=== PATIENT | male | born 1975 | race Caucasian/White ===

== ENCOUNTER 2024-10-12 08:42 | Outpatient (AMB) | payer MEDICAID, SELFPAY ==
--- NOTE | 2024-10-12 08:48 | A.OFFVIS_ITS ---
Vital Signs 10/12/24 09:04 Height 6 ft 2 in Weight 216 lb BMI 27.7 BP 146/91 H Blood Pressure Location Rt brachial Position Sitting Pulse 76 Intake Visit Reasons: Right inguinal hernia Intake Note: Patient referred after walk in Urgent Care visit for RT inguinal hernia. Present for 1yr. Patient c/o: pain. 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 Client Liaison Required: Yes Client Liaison Name: Shahana spouse Accompanied by: Spouse Allergies No Known Allergies Allergy (Verified 10/12/24 09:06) HPI Comments Details: Patient presents with his . He has had a symptomatic right inguinal hernia for over 1 year's time. He had a CT scan of this at [facility] roughly 12 months ago which confirmed the hernia. The patient has had progressive symptoms and now would like to have it repaired. He is otherwise tolerating a diet. He is having regular bowel habits. The pneumatic hernia has limited his activities. Chart was reviewed and patient evaluated. 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 [facility] Family History (Updated 10/12/24 @ 09:08 by LUAN Lomas) Father HTN (hypertension) Diabetes Social History (Updated 10/12/24 @ 09:09 by LUAN Lomas) Household Members: Spouse and Children Alcohol intake: current Alcohol intake frequency: holidays/special occasions only Alcohol type: hard liquor Patient Tobacco Use Status: Never used Tobacco Sexual orientation: Straight/Heterosexual Gender identity: Male Physical Exam Vital Signs: Last Vital Signs Pulse 76 10/12/24 09:04 BP 146/91 H 10/12/24 09:04 BMI result Body Mass Index 27.7 Chest Other: Chest breath sounds bilaterally, HS 1 in 2 GI Other: Patient was examined both supine and standing with Valsalva. Abdomen is soft, benign. Left groin negative. Genitalia within normal limits. Small tender right inguinal hernia. Assessment & Plan Assessment & Plan (1) Right inguinal hernia: Code(s): K40.90 - Unilateral inguinal hernia, without obstruction or gangrene, not specified as recurrent Category: Surgical Plan Risks, benefits, and alternatives of open right inguinal hernia repair with mesh were reviewed with the patient included but not limited to bleeding, infection, recurrence, numbness, pain, scarring and the patient wished to proceed. All questions answered. Arrangements made for this on a day which is convenient. Coding Level of Care Code New Pt Level 5 (19479) Diagnoses Right inguinal hernia K40.90
[2024-10-12 09:04] VITALS: BP 146/91; PULSE 76; BMI 27.7
== END 2024-10-12 09:20 | disposition home or self-care (01) ==
PROVIDERS: Visit Provider Surgery
DX: K40.90 Unilateral inguinal hernia, without obstruction or gangrene, not specified as recurrent (principal)
CPT/HCPCS: 99204

== ENCOUNTER → 2024-10-12 08:42 | Outpatient (BNVA) | payer MEDICAID, SELFPAY | PROVIDERS: Visit Provider Surgery | DX: K40.90 Unilateral inguinal hernia, without obstruction or gangrene, not specified as recurrent (principal) | CPT/HCPCS: 99202 ==

== ENCOUNTER 2024-11-05 12:45 | Outpatient (AMB) | payer MEDICAID, SELFPAY ==
--- NOTE | 2024-11-05 12:54 | A.OFFPC_ITS ---
Vital Signs 11/05/24 12:56 Height 6 ft 1.43 in Weight 216 lb 2 oz BMI 28.2 BP 120/70 Blood Pressure Location Lt brachial Position Sitting Pulse 83 Pulse Source Pulse Oximeter Temp 97.5 F Temp Source Temporal Artery Scan Pulse Oximetry (%) 97 Oxygen Delivery Method Room Air Intake Visit Reasons: new patient Intake Note: Patient is a new patient here to establish care for Wellness visit. Transferring care from Unknown. Medical records have not been requested and have not received. Strategy Execution Consultant Required: Yes Strategy Execution Consultant Language: Nauruan Strategy Execution Consultant Name: Ramsey (sister) Information Interpreted: non-clinical & clinical (pt decline production control planner service, prefer sister to translate) Medical Transcription: Present Accompanied by: Sister Allergies No Known Allergies Allergy (Verified 11/05/24 13:02) Medication List - Last Reconciled 11/05/24 by LEXUS Jason No Known Home Meds Tobacco use date assessed: 11/05/24 Dental Screening Dental Screen Date: 11/05/24 Did you have a dental visit in the last 12 months?: Yes Did you have a dental problem in the last 6 months where you did not have access to dental care?: No Was dental information given to patient?: Patient has dentist HPI new patient HPI Details Previous PCP:no Last visit: Last PE[place] Specialist: general surgery OBGYN: n/a Past medical history: no Medications:no Family HX: mother osteoarthritis and osteoporosis, migraines and asthma, hip surgery, father DM when he was 50 years old because of the weight Problem: The patient is 49 year old year old male presenting to establish care Patient is accompanied by sister who interpreted for the patient per his request The patient reports that he is a healthy jae that has no issues The patient reports that 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 As a result, the patient developed a right inguinal hernia about a year ago Reports that he was seen by General surgery and has plans for surgical repair The patient also reports lower back pain that radiates down his legs to behind posterior knee on both sides He reports that the severely of the pain is depending on what he is doing Patient reports that the pain in his right groin is more severe reports that he has limited ROM motion in the right leg due the pain He reports that sometimes he has mild shortness of breath when he is exerting himself Patient reports that he does not see an issue and thinks that it is age-related Patient reports that his main focus is to get his groin taking care off and to also get a general workup He denies dizziness, denies heart palpitation, and chest pain reports that he is moving his bowel ok reports seldom getting heartburn if he eats tomatoes He denies any urinary symptoms PFSH Surgical History (Updated 11/07/24 @ 11:51 by LEXUS Jason) No pertinent past surgical history Family History (Updated 11/07/24 @ 11:51 by LEXUS Jason) Father HTN (hypertension) Diabetes Mother History of hip surgery Migraines Osteoarthritis Osteoporosis Social History (Updated 11/05/24 @ 13:05 by LUAN Peoples) Household Members: Spouse and Children Housing: House Alcohol intake: current Alcohol intake frequency: holidays/special occasions only Alcohol type: hard liquor Patient Tobacco Use Status: Never used Tobacco e-Cigarette/Vaping Use: Never Used Second Hand Smoke Exposure: No service: No Current occupational status: unemployed Sexual orientation: Straight/Heterosexual Gender identity: Male Cognitive needs: No Hearing needs: No Vision needs: No Questionnaire PHQ-9 Over the last 2 weeks, how often have you been bothered by any of the following problems? 1. Little interest or pleasure in doing things: not at all 2. Feeling down, depressed, or hopeless: not at all 3. Trouble falling or staying asleep, or sleeping too much: not at all 4. Feeling tired or having little energy: not at all 5. Poor appetite or overeating: not at all 6. Feeling bad about yourself - or that you are a failure or have let yourself or your family down: not at all 7. Trouble concentrating on things, such as reading the newspaper or watching television: not at all 8. Moving or speaking so slowly that other people could have noticed. Or the opposite - being so fidgety or restless that you have been moving around a lot more than usual: not at all 9. Thoughts that you would be better off or of hurting yourself in some way: not at all Total score: 0 Depression Screening Interpretation: Negative Depression Screening Done: Yes 45905 - PHQ-9 Billing: Yes Source: Developed by Drs. Romain Perdomo, Annika Arauz, Shine Martinez and colleagues, with an educational rajesh from [employer]. Thrive Questionnaire Date Thrive assessed: 11/04/24 I am a: Patient What is your living situation today?: I have a steady place to live Within the past 12 months, did the food you bought not last and you didn't have the money to get more?: Never true Within the past 12 months, did you worry whether your food would run out before you got money to buy more?: I choose not to answer this question Do you have trouble paying for medicines?: No Do you have trouble getting transportation to medical appointments?: No Do you have trouble paying your heating and electricity bill?: No Do you have trouble taking care of your child, family member or friend?: No Do you have trouble with day-to-day activities such as bathing, preparing meals, shopping, managing finances, etc.?: No Are you currently unemployed and looking for a job?: Yes Are you interested in more education?: No Please select the resources that you would like help with: None Currently or been in a relationship where the following occur: No concerns reported THRIVE Score: 0 AUDIT C Alcohol Use Questionnaire (AUDIT-C) 1. How often do you have a drink containing alcohol?: Never 3. How often do you have six or more drinks on one occasion?: Never Total Score: 0 ZACH-7 AMB Questionnaire ZACH-7 Date ZACH - 7 assessed: 11/05/24 Feeling nervous, anxious, or on edge: 0 = Not at all Not being able to stop or control worryin = Not at all Worrying too much about different things: 0 = Not at all Trouble relaxin = Not at all Being so restless that it is hard to sit still: 0 = Not at all Becoming easily annoyed or irritable: 0 = Not at all Feeling afraid as if something awful might happen: 0 = Not at all Total ZACH-7 score (0-4 normal; 5-9 mild; 10-14 moderate; 15-21 severe): 0 Source: Developed by Annika Billings, Shine Martinez and colleagues, with an educational rajesh from [employer]. ZACH-7 Assessment Billing ZACH-7 Assessment Tool: ZACH-7 Assessment 46237 Review of Systems Const Details: Denies chills, Denies fatigue, Denies fever(s), Denies headache(s) and Denies weakness HEENT Denies change in vision, Denies dizziness, Denies headache(s), Denies hearing loss, Denies nasal congestion, Denies sinus pain, Denies sinus pressure and Denies sore throat Card Denies chest pain, Denies lightheadedness, + mild dyspnea with exertion and Denies other (palpitations) Resp Denies cough, + mild dyspnea with exertion and Denies wheezing GI Denies abdominal pain, Denies melena, Denies hematochezia, Denies change in bowel habits, Denies dyspepsia and Denies nausea other: right groin pain (inguinal hernia) Denies hematuria and Denies dysuria Musc Denies abnormal gait, Denies myalgias, +arthralgias (c/o on and off lower back that radiates to the back of his leg slightly above his knees), Denies numbness and Denies tingling Skin/Breast Denies rash, Denies unusual bruising and Denies wounds Neuro Denies abnormal gait, Denies dizziness, Denies headache(s), Denies memory loss, Denies numbness, Denies Sensory deficit (Neuro), Denies tingling and Denies weakness Psych Denies anxiety, Denies depression and Denies memory loss Endo Denies cold intolerance, Denies fatigue, Denies heat intolerance, Denies polydipsia and Denies polyuria Jack/Lymph Denies easy bleeding and Denies easy bruising Aller/Immun Denies wheezing Physical exam (Primary Care) Vital Signs: Last Vital Signs Temp 97.5 F 11/05/24 12:56 Pulse 83 11/05/24 12:56 BP 120/70 11/05/24 12:56 Pulse Ox 97 11/05/24 12:56 Oxygen Delivery Method Room Air 11/05/24 12:56 BMI result Body Mass Index 28.2 Tobacco/Smoking Status: Tobacco use Status Tobacco use date assessed 11/05/24 11/05/24 13:05 Patient Tobacco Use Status Never used Tobacco 11/05/24 13:05 e-Cigarette/Vaping Use Never Used 11/05/24 13:05 PHQ-9: PHQ-9 Score PHQ-9: Total score 0 11/05/24 13:05 Depression Screening Interpretation: Negative Thrive Assessment: Date of Thrive Assessment Date Thrive assessed 11/04/24 11/05/24 13:05 Currently or been in a relationship where the following occur: No concerns reported Const Other: General: no acute distress, well developed, alert and awake Nutritional Appearance: well nourished Orientation/consciousness: patient oriented x3 HENMT Head: Yes normocephalic and Yes atraumatic Ears: hearing grossly normal bilaterally and TM's normal bilaterally General nose exam: Normal external nose present and Normal nares present Mouth: Normal oral and palatal mucosa present and moist mucous membranes Teeth and gingiva: dentition normal Throat: Yes oropharynx normal Eyes Pupils: Equal, round and reactive pupils present and Pupil accommodation reflex normal EOM: EOMs intact bilaterally Neck Neck: Yes normal visual inspection, Yes no lymphadenopathy and Yes trachea midline Thyroid: Thyroid normal Carotids: no bruits Lymphatic: no lymphadenopathy noted Chest Chest palpation & inspection: normal inspection of the chest Resp Effort & Inspection: normal respiratory effort Auscultation: clear to auscultation bilaterally Cardio Rate: regular rate Rhythm: regular rhythm Heart sounds: S1 normal heart sound present, S2 normal heart sound present, no gallops, no murmurs and no rubs Bruits: no abdominal aortic bruits and no carotid bruits GI Palpation (GI): No Abdominal aortic bruit present, Soft to palpation, nontender, No hepatosplenomegaly present and No Rebound tenderness present Auscultation: normal bowel sounds General: Yes no CVA tenderness Back/Spine/Pelvis Back: no CVA tenderness Cervical Spine: cervical ROM normal and No Cervical spine tenderness Thoracic/Lumbar Spine: No lumbar tenderness with palpation Skin General: warm and dry. Normal skin color. Normal skin turgor Lesions: no lesions Wounds: no wounds Nails: normal Neuro General: patient oriented x3, gait normal Cranial nerves: Yes Equal, round and reactive pupils present Cognition (Neuro): normal cognition Gait exam (Neuro): Normal gait present Extrem General: Yes normal to inspection, No edema and No calf tenderness Psych Appearance: grossly normal Affect: normal affect Attitude: cooperative Thought process: Normal thought process present Coding Level of Care Code New Pt Level 4 (14232) Diagnoses Encounter to establish care with new provider Z76.89 Right inguinal hernia K40.90 Bilateral low back pain with bilateral sciatica, unspecified chronicity M54.42; M54.41 Chronicity: unspecified Back pain laterality: bilateral Sciatica presence: with sciatica Sciatica laterality: bilateral sciatica Additional Codes ZACH-7 Assessment Billing - ZACH-7 Assessment Tool: ZACH-7 Assessment 01295 ([id number]) PHQ-9 - 35143 - PHQ-9 Billing: Yes ([id number]) Time Spent (min) 36 Assessment & Plan Assessment & Plan (1) Encounter to establish care with new provider: Code(s): Z76.89 - Persons encountering health services in other specified circumstances Category: Medical Plan: Labs ordered for the patient to do as soon as possible. Patient to return in 2 weeks for physical exam. An EKG was ordered as well to evaluate the patient for upcoming pre-procedure clearance (2) Right inguinal hernia: Code(s): K40.90 - Unilateral inguinal hernia, without obstruction or gangrene, not specified as recurrent Category: Surgical Plan: Right groin hernia present on exam. Denies pain with palpation. Reports that the pain comes when he is doing heavy lifting, which is required by his job. Reports he is not taking any medication at this time and is just resting intermittently with positive effect. The patient was examined by General surgery and was told that he needed a PCP in order to go ahead with surgery. The patient is establishing care to get a generalized workup and also to be cleared for surgery. (3) Lower back pain: Code(s): M54.50 - Low back pain, unspecified Category: Medical Qualifiers: Chronicity: unspecified Back pain laterality: bilateral Sciatica presence: with sciatica Sciatica laterality: bilateral sciatica Qualified Code(s): M54.42 - Lumbago with sciatica, left side; M54.41 - Lumbago with sciatica, right side Plan: Patient reports that this is less bothersome and he is more concerned about his right groin at this time. We will continue to monitor Orders: Orders Comprehensive [place]. Panel Fast 11/06/24 K40.90 - Unilateral inguinal hernia, without obstruction or gangrene, not specified as recurrent, Z00.00 - Encounter for general adult medical examination without abnormal findings Glucose Fasting 11/06/24 K40.90 - Unilateral inguinal hernia, without obstruction or gangrene, not specified as recurrent, Z00.00 - Encounter for general adult medical examination without abnormal findings UA CC w/rflx Micro + Cult 11/06/24 K40.90 - Unilateral inguinal hernia, without obstruction or gangrene, not specified as recurrent, Z00.00 - Encounter for general adult medical examination without abnormal findings Vitamin D 25-OH Total 11/06/24 K40.90 - Unilateral inguinal hernia, without obstruction or gangrene, not specified as recurrent, Z00.00 - Encounter for general adult medical examination without abnormal findings Complete Blood Count Auto Diff 11/06/24 K40.90 - Unilateral inguinal hernia, without obstruction or gangrene, not specified as recurrent, Z00.00 - Encounter for general adult medical examination without abnormal findings Lipid Panel 11/06/24 K40.90 - Unilateral inguinal hernia, without obstruction or gangrene, not specified as recurrent, Z00.00 - Encounter for general adult medical examination without abnormal findings Hemoglobin A1c 11/06/24 K40.90 - Unilateral inguinal hernia, without obstruction or gangrene, not specified as recurrent, Z00.00 - Encounter for general adult medical examination without abnormal findings TSH reflex Free T4 11/06/24 K40.90 - Unilateral inguinal hernia, without obstruction or gangrene, not specified as recurrent, Z00.00 - Encounter for general adult medical examination without abnormal findings ECG 12 lead EKG 11/05/24 K40.90 - Unilateral inguinal hernia, without obstruction or gangrene, not specified as recurrent, Z00.00 - Encounter for general adult medical examination without abnormal findings, Z01.818 - Encounter for other preprocedural examination
[2024-11-05 12:56] VITALS: BP 120/70; PULSE 83; TEMP 36.4; O2SAT 97; BMI 28.2
== END 2024-11-05 13:42 | disposition home or self-care (01) ==
DX: Z76.89 Persons encountering health services in other specified circumstances (principal); K40.90 Unilateral inguinal hernia, without obstruction or gangrene, not specified as recurrent; M54.42 Lumbago with sciatica, left side; M54.41 Lumbago with sciatica, right side

== ENCOUNTER → 2024-11-05 12:45 | Outpatient (BNVA) | payer MEDICAID, SELFPAY | DX: M54.42 Lumbago with sciatica, left side (principal); M54.41 Lumbago with sciatica, right side; K40.90 Unilateral inguinal hernia, without obstruction or gangrene, not specified as recurrent; Z76.89 Persons encountering health services in other specified circumstances | CPT/HCPCS: 96127; 99202 ==

== ENCOUNTER 2024-11-06 07:28 | Outpatient (REF) | payer MEDICAID, SELFPAY ==
[2024-11-06 07:54] LABS: MANUAL DIFF FLAG NO
[2024-11-06 09:10] LABS: Basophils Percent Auto 0.8 % (0-2); Eosinophils Absolute Auto 0.2 X10*3/uL (0.0-0.4); Eosinophils Percent Auto 3.1 % (0-4); Hematocrit 44.9 % (42.0-52.0); Hemoglobin 15.1 g/dl (14.0-18.0); Imm Gran Abs Auto 0.05 X10*3/uL (0.00-0.03); Lymphocytes Percent Auto 38.6 % (20-40); Mean Corpuscular HGB Conc 33.6 g/dl (31.0-36.0); Mean Corpuscular Hemoglobin 29.2 pg (27.0-33.0); Mean Corpuscular Volume 86.7 fL (80.0-98.0); Mean Platelet Volume 10.9 fL (9.4-12.4); Monocytes Absolute Auto 0.6 X10*3/uL (0.1-1.2); Neutrophils Absolute Auto 2.3 x10*3/uL (2.0-8.3); Neutrophils Percent Auto 45.5 % (45-73); Platelet Count 208 X10*3/uL (160-400); Red Blood Count 5.18 X10*6/uL (4.60-5.80); White Blood Count 5.1 X10*3/uL (4.8-10.8)
[2024-11-06 09:21] LABS: Estimated Average Glucose 103 mg/dL; Hemoglobin A1C 131.1631 umol/L; Hemoglobin A1c % 5.2 % (<6.0); Total Hemoglobin (HGBA1C) 3892.5236 umol/L
[2024-11-06 09:23] LABS: Appearance Urine Clear; Color Urine Yellow; Glucose Urine UA Negative (Negative); Leukocyte Esterase Urine Negative (Negative); Nitrite Urine Negative (Negative); PH 5.5 (5.0-9.0); Specific Gravity - Urine >= 1.030 (1.005-1.025); Urine Blood Negative (Negative); Urine Ketones Negative (Negative); Urine Protein Trace mg/dL (Neg-Trace)
[2024-11-06 10:08] LABS: Alanine Aminotransferase 33 U/L (0-40); Albumin Level 4.3 g/dL (3.5-5.0); Alkaline Phosphatase 69 U/L (39-117); Anion Gap 13 (12-20); Aspartate Amino Transferase 19 U/L (5-37); Bilirubin Total 0.6 mg/dL (0.0-1.0); Blood Urea Nitrogen 22 mg/dL (9-16); Calcium 9.2 mg/dL (8.4-10.2); Carbon Dioxide 24 mmol/L (22-29); Chloride 110 mmol/L (96-108); Cholesterol 216 mg/dL (<200); Estimated Glomerular Filt Rate > 60; Glucose Fasting 112 mg/dL (60-99); HDL Cholesterol 40 mg/dL (>40); LDL Cholesterol Calculated 141 mg/dL (<100); Potassium 3.8 mmol/L (3.3-5.1); Sodium 143 mmol/L (135-145); Total Protein 7.8 g/dL (6.5-8.0); Triglycerides 179 mg/dL (<150)
== END 2024-11-06 07:29 | disposition home or self-care (01) ==
LOC: HO.LAB 07:28
DX: Z00.00 Encounter for general adult medical examination without abnormal findings (principal); K40.90 Unilateral inguinal hernia, without obstruction or gangrene, not specified as recurrent
CPT/HCPCS: 36415; 80053; 80061; 81003; 82306; 83036; 84443; 85025

== ENCOUNTER → 2024-11-08 07:59 | Outpatient (REF) | payer MEDICAID, SELFPAY ==
--- NOTE | 2024-11-08 08:08 | ECG_ITS ---
Test Reason : preop k40.90 Blood Pressure : */* mmHG Vent. Rate : 61 BPM Atrial Rate : 61 BPM P-R Int : 158 ms QRS Dur : 118 ms QT Int : 426 ms P-R-T Axes : 58 27 16 degrees QTcB Int : 428 ms Normal sinus rhythm Incomplete right bundle branch block Borderline ECG No previous ECGs available Referred By: Arun Alonso Electronically Signed By: JEREMÍAS BOUCHER
== END ==
LOC: HO.CARD 07:59
DX: Z01.818 Encounter for other preprocedural examination (principal); K40.90 Unilateral inguinal hernia, without obstruction or gangrene, not specified as recurrent
CPT/HCPCS: 93005

== ENCOUNTER → 2024-11-08 08:08 | Outpatient (BNV) | payer MEDICAID, SELFPAY | PROVIDERS: Visit Provider Internal Medicine | DX: I45.10 Unspecified right bundle-branch block (principal) | CPT/HCPCS: 93010 ==

== ENCOUNTER 2024-11-23 14:39 | Outpatient (AMB) | payer OTHER, SELFPAY ==
--- NOTE | 2024-11-23 14:45 | A.OFFPC_ITS ---
Vital Signs 11/23/24 14:46 Height 6 ft 1.43 in Weight 216 lb 9.6 oz BMI 28.2 BP 122/86 Blood Pressure Location Lt brachial Position Sitting Respiration 16 Pulse 96 Pulse Source Pulse Oximeter Temp Source Oral Pulse Oximetry (%) 96 Oxygen Delivery Method Room Air Intake Visit Reasons: Annual physical Batch Attendant Required: No Accompanied by: Sister Allergies No Known Allergies Allergy (Verified 11/23/24 14:55) Medication List - Last Reconciled 11/23/24 by LEXUS Jason No Known Home Meds Tobacco use date assessed: 11/23/24 Dental Screening Dental Screen Date: 11/23/24 Did you have a dental visit in the last 12 months?: Yes Did you have a dental problem in the last 6 months where you did not have access to dental care?: No Was dental information given to patient?: Patient has dentist HPI Annual physical HPI Details Dentist: up to date Eye: Snellen: Right: Left: Corrected vision: no, will make appt STI screening: Colonoscopy: next year Pap Smer:n/a PHQ-9: Flu: decline COVID: decline Tdap: will get in office today Diet: regular Exercise: swim would like some titers done PFSH Surgical History No pertinent past surgical history Family History Father HTN (hypertension) Diabetes Mother History of hip surgery Migraines Osteoarthritis Osteoporosis Social History Household Members: Spouse and Children Housing: House Alcohol intake: current Alcohol intake frequency: holidays/special occasions only Alcohol type: hard liquor Patient Tobacco Use Status: Never used Tobacco e-Cigarette/Vaping Use: Never Used Second Hand Smoke Exposure: No service: No Current occupational status: unemployed Sexual orientation: Straight/Heterosexual Gender identity: Male Cognitive needs: No Hearing needs: No Vision needs: No Questionnaire Thrive Questionnaire Date Thrive assessed: 11/23/24 I am a: Patient What is your living situation today?: I have a steady place to live Within the past 12 months, did the food you bought not last and you didn't have the money to get more?: Never true Within the past 12 months, did you worry whether your food would run out before you got money to buy more?: I choose not to answer this question Do you have trouble paying for medicines?: No Do you have trouble getting transportation to medical appointments?: No Do you have trouble paying your heating and electricity bill?: No Do you have trouble taking care of your child, family member or friend?: No Do you have trouble with day-to-day activities such as bathing, preparing meals, shopping, managing finances, etc.?: No Are you currently unemployed and looking for a job?: Yes Are you interested in more education?: No Please select the resources that you would like help with: None Currently or been in a relationship where the following occur: No concerns reported THRIVE Score: 0 AUDIT C Alcohol Use Questionnaire (AUDIT-C) 1. How often do you have a drink containing alcohol?: Never 3. How often do you have six or more drinks on one occasion?: Never Total Score: 0 ZACH-7 AMB Questionnaire ZACH-7 Date ZACH - 7 assessed: 11/05/24 Source: Developed by Drs. Romain Perdomo, Annika Arauz, Shine Martinez and colleagues, with an educational rajesh from [employer]. Physical exam (Primary Care) Vital Signs: Last Vital Signs Pulse 96 11/23/24 14:46 Resp 16 11/23/24 14:46 BP 122/86 11/23/24 14:46 Pulse Ox 96 11/23/24 14:46 Oxygen Delivery Method Room Air 11/23/24 14:46 BMI result Body Mass Index 28.2 Tobacco/Smoking Status: Tobacco use Status Tobacco use date assessed 11/23/24 11/23/24 14:54 Patient Tobacco Use Status Never used Tobacco 11/23/24 14:54 e-Cigarette/Vaping Use Never Used 11/23/24 14:54 Thrive Assessment: Date of Thrive Assessment Date Thrive assessed 11/23/24 11/23/24 14:54 Currently or been in a relationship where the following occur: No concerns reported Immunizations Boostrix Tdap 2.5 Lf unit-8 mcg-5 Lf/0.5 mL intramuscular syringe Performing Provider: LEXUS Jason [facility] Administered by: Roopa Hinojosa CMA on 11/23/24 15:31 Dose Route Admin Location Dispensed Lot Number Expiration Date NDC Street Light Rep[employer]r Helper 0.5 mL IM Left Deltoid 0.5 mL [id number] 01/01/27 [id number] [employer] VIS Given Date VIS Provided VIS Publication Date 11/23/24 Single Vaccine 21 Eligibility Eligibility Date Funding Source Not VFC Eligible 11/23/24 Private Coding Assessment & Plan Assessment & Plan Orders: Orders Comprehensive [place]. Panel Fast 3 Months E56.9 - Vitamin deficiency, unspecified, E78.00 - Pure hypercholesterolemia, unspecified, I45.10 - U nspecified right bundle-branch block Lipid Panel 3 Months E56.9 - Vitamin deficiency, unspecified, E78.00 - Pure hypercholesterolemia, unspecified, I45.10 - Unspecified right bundle-branch block TSH reflex Free T4 3 Months E56.9 - Vitamin deficiency, unspecified, E78.00 - Pure hypercholesterolemia, unspecified, I45.10 - Unspecified right bundle-branch block TDaP Immunization Today Z23 - Encounter for immunization UA CC w/rflx Micro + Cult 3 Months E56.9 - Vitamin deficiency, unspecified, E78.00 - Pure hypercholesterolemia, unspecified, I45.10 - Unspecified right bundle-branch block Vitamin D 25-OH Total 3 Months E56.9 - Vitamin deficiency, unspecified, E78.00 - Pure hypercholesterolemia, unspecified, I45.10 - Unspecified right bundle- branch block Medications: New atorvastatin 10 mg PO BEDTIME 3 months 90 tabs 3RF E78.00 - Pure hypercholesterolemia, unspecified cholecalciferol (vitamin D3) 25 mcg PO DAILY 3 months 90 caps 3RF E56.9 - Vitamin deficiency, unspecified
[2024-11-23 14:46] VITALS: BP 122/86; PULSE 96; RESP 16; O2SAT 96; BMI 28.2
== END 2024-11-23 15:52 | disposition home or self-care (01) ==
LOC: HO.HMCH 14:40
DX: Z23 Encounter for immunization (principal)

== ENCOUNTER → 2024-11-23 14:39 | Outpatient (BNVA) | payer OTHER, SELFPAY | DX: Z00.00 Encounter for general adult medical examination without abnormal findings (principal); Z23 Encounter for immunization; I45.10 Unspecified right bundle-branch block; M54.41 Lumbago with sciatica, right side; M54.42 Lumbago with sciatica, left side; K40.90 Unilateral inguinal hernia, without obstruction or gangrene, not specified as recurrent; E55.9 Vitamin D deficiency, unspecified; E78.2 Mixed hyperlipidemia | CPT/HCPCS: 90471; 90715; 99396 ==

== ENCOUNTER 2024-11-30 13:13 | Outpatient (AMB) | payer OTHER, SELFPAY ==
[2024-11-30 13:25] VITALS: BP 130/80; PULSE 74; BMI 28.3
--- NOTE | 2024-11-30 13:25 | MHC.OFFVIS ---
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 He is a healthy 49-year-old male who has developed symptomatic right inguinal hernia which limits his activity level. Patient says because of that he has not been able to exercise regularly. He has been. However prior to that he has been in great functional shape. He suddenly when he burst running he gets short of breath and rapid heart rate. He does not get symptoms of shortness of breath with minimal day-to-day activity. He definitely has more than 4 Mets of physical capacity. He is scheduled to undergo right inguinal hernia repair which is considered low risk surgery. Patient was noted recently to hyperlipidemia with elevated triglycerides as well as elevated LDL and was started on atorvastatin 10 mg daily. Patient has no family history of premature coronary artery disease. His mother did recently have atrial fibrillation was cardioverted as per him. He denies any orthopnea, PND, leg edema. No lightheadedness, syncope. [facility] Surgical History No pertinent past surgical history Family History Father HTN (hypertension) Diabetes Mother History of hip surgery Migraines Osteoarthritis Osteoporosis Social History Household Members: Spouse and Children Housing: House Alcohol intake: current Alcohol intake frequency: holidays/special occasions only Alcohol type: hard liquor Patient Tobacco Use Status: Never used Tobacco e-Cigarette/Vaping Use: Never Used Second Hand Smoke Exposure: No service: No Current occupational status: unemployed Sexual orientation: Straight/Heterosexual Gender identity: Male Cognitive needs: No Hearing needs: No Vision needs: No Review of Systems Const Denies chills, Denies daytime sleepiness, Denies fatigue, Denies fever(s), Denies frequent falls, Denies poor appetite, Denies snoring, Denies stops breathing during sleep, Denies weakness, Denies weight gain and Denies weight loss Eyes Denies loss of vision ENT Denies dizziness and Denies hearing loss Card Denies chest pain, Denies claudication, Denies leg edema, Denies lightheadedness, Denies palpitations, Denies dyspnea, Denies dyspnea on exertion and Denies orthopnea Resp Denies cough, Denies excessive phlegm production, Denies dyspnea, Denies dyspnea on exertion, Denies snoring and Denies wheezing GI Denies abdominal pain, Denies hematochezia, Denies change in bowel habits, Denies nausea and Denies vomiting Denies dysuria and Denies urinary frequency Musc Denies arthralgias, Denies muscle weakness, Denies numbness and Denies other (frequent falls) Skin/Breast Denies nail changes and Denies rash Neuro Denies Abnormal speech present, Denies dizziness, Denies frequent falls, Denies loss of vision, Denies memory loss, Denies numbness and Denies weakness Psych Denies depression and Denies memory loss Endo Denies fatigue and Denies palpitations Jack/Lymph Reports easy bruising and Reports other (anemia) Aller/Immun Denies wheezing Physical Exam Vital Signs: Last Vital Signs Pulse 74 11/30/24 13:25 BP 130/80 11/30/24 13:25 BMI result Body Mass Index 28.3 Const General: cooperative, comfortable, no acute distress, well developed, awake and Physically active Nutritional Appearance: average body habitus and well nourished Orientation/consciousness: patient oriented x3 Limitations: no limitations HEENT Head: Yes normocephalic and Yes atraumatic Neck Neck: Yes trachea midline, Yes supple and Yes no JVD Carotids: no bruits Resp Effort & Inspection: normal respiratory effort Auscultation: clear to auscultation bilaterally Cardio Jugular venous distension: no JVD Palpation: normal PMI Rate: regular rate Rhythm: regular rhythm Heart sounds: S1 normal heart sound present, S2 normal heart sound present, no click, no gallops, no murmurs and no rubs Peripheral pulses: Peripheral pulses 2+ throughout GI Auscultation: normal bowel sounds Skin General skin exam: no rashes or lesions noted Neuro General: patient oriented x3 and no focal motor deficits Speech: No Abnormal speech present Extrem General: Yes no clubbing, cyanosis or edema Psych Appearance: grossly normal Office Procedures EKG Details: EKG shows normal sinus rhythm with normal EKG today. [id number], Complete Assessment & Plan Assessment & Plan (1) Preoperative cardiovascular examination: Code(s): Z01.810 - Encounter for preprocedural cardiovascular examination Plan: Preoperative cardiovascular examination this middle-aged man with excellent physical capacity with normal baseline EKG to undergo low risk surgery. Patient was no active cardiac symptoms in his symptoms exertional shortness of breath with bursts running or consider physiologic. At this point time he is optimized to undergo surgery with low risk for perioperative cardiovascular morbidity mortality. Findings discussed with Dr. Shultz who will schedule him for surgery in the near future. (2) Mixed hypercholesterolemia and hypertriglyceridemia: Code(s): E78.2 - Mixed hyperlipidemia Category: Medical Plan: Mixed hyperlipidemia and middle-aged man without any clear concerning symptoms. Baseline EKGs normal. He has been started on statin therapy although I discussed that we can further risk stratify him with help of a coronary calcium score. If his coronary calcium score is 0 we can pursue lifestyle modification and modify lipids with that rather than pursuing statin therapy for life. If he has any level of atherosclerosis he would benefit from statin therapy. This was discussed with him. He and his are very interested in pursuing further risk stratification. If he was markedly elevated coronary calcium score then we will need further provocative testing. This was discussed with him. Will follow up in the clinic if need be. Thank you for allowing me to partake in his care Orders: Orders CT Coronary Calcium Score 4 Weeks E78.2 - Mixed hyperlipidemia, E78.5 - Hyperlipidemia, unspecified Coding Level of Care Code New Pt Level 4 (61238) Complex EM visit Add On G2211 Diagnoses Preoperative cardiovascular examination Z01.810 Mixed hypercholesterolemia and hypertriglyceridemia E78.2 CPT Codes EKG - CPT: 78159-[id number], Complete ([id number])
== END 2024-11-30 13:51 | disposition home or self-care (01) ==
PROVIDERS: Visit Provider Internal Medicine Cardiovascular Disease
DX: Z01.810 Encounter for preprocedural cardiovascular examination (principal); E78.2 Mixed hyperlipidemia
CPT/HCPCS: 93010; 99204; G2211

== ENCOUNTER → 2024-11-30 13:13 | Outpatient (BNVA) | payer OTHER, SELFPAY | PROVIDERS: Visit Provider Internal Medicine Cardiovascular Disease | DX: Z01.810 Encounter for preprocedural cardiovascular examination (principal); E78.2 Mixed hyperlipidemia | CPT/HCPCS: 93005; 99202 ==

== ENCOUNTER 2024-12-24 12:10 | Day surgery (SDC) | payer OTHER, SELFPAY ==
--- NOTE | 2024-12-23 12:09 | MHC.SHP ---
Pre-Procedural Eval Section A - 24 Hr Update-Section A only Date of Service: 12/24/24 The patient is an INPATIENT: No Changes since office visit: No Cold of Flu in the past 2 weeks, No New Medical Problems, No Changes in Medication and No Patient answered all questions Section B - Complete if H&P > 30 days Chief Complaint: Unilateral inguinal hernia, without obstruction or Allergies: Allergies Allergy/AdvReac Type Severity Reaction Status Date / Time No Known Allergies Allergy Verified 11/23/24 14:55 Review of Systems Sugical H&P ROS: Negative: Constitution, Cardiovascular, Respiratory, Neurological, Psychiatric, Hem-Onc, Allergic/Immunologic, Gastrointestinal, Genitourinary, Musculoskeletal, Integumentary, Endocrine and Eyes/Ears/Nose/Throat Exam Surgical H&P Exam: Normal: HEENT, Normal: Heart, Normal: Lungs, Normal: Extremities, Normal: Abdomen, Normal: Skin and Normal: Neurological Plan I have reviewed the history and physical and performed a pertinent physical examination on my patient. No changes have occurred unless specified. Time Spent With Patient Time: Total time managing care of this patient today ____ minutes.
[2024-12-24] VITALS (7 sets, daily range): BP systolic 98–139; BP diastolic 58–82; PULSE 56–73; RESP 16–18; TEMP 36.2–36.9; O2SAT 97–98; BMI 28.3; BMI 28.4
[2024-12-24] MEDS: Lactated Ringers 1,000 ML 100 ML IVCONT (13:28)
--- NOTE | 2024-12-24 15:20 | HO.ANESPROP2 ---
Documented by User: Elizabeth Clifton NP 12/23/24 12:53 HPI - Anesthesia Eval Consult details Narrative: 49yo M for Right Hernia Inguinal Reducible with mesh Sent by PCP for cardiac risk stratify for abnormal EKG and reports of ROLLE. Optimized/low risk per [facility] Cardiology eval 11/30/24 [facility] Active Problems Active Problems: All Active Problems Mixed hypercholesterolemia and hypertriglyceridemia (Acute) Vitamin D deficiency (Acute) Vitamin deficiency (Acute) Elevated cholesterol (Acute) RBBB (Acute) Encounter to establish care with new provider (Acute) Lower back pain (Acute) Pre-operative clearance (Acute) Annual physical exam (Acute) Right inguinal hernia (Acute) Family History Family History Father HTN (hypertension) Diabetes Mother History of hip surgery Migraines Osteoarthritis Osteoporosis Surgical History Surgical History No pertinent past surgical history Social History Social History Household Members: Spouse and Children Housing: House Alcohol intake: current Alcohol intake frequency: does not drink Alcohol type: hard liquor Patient Tobacco Use Status: Never used Tobacco e-Cigarette/Vaping Use: Never Used Second Hand Smoke Exposure: No Have you been hit, kicked, punched, or otherwise hurt by someone within the past year? If so, by whom?: No Are you DNR?: No Advance Directives: No Advance Directives Information Provided: Yes service: No Current occupational status: unemployed Sexual orientation: Straight/Heterosexual Gender identity: Male Cognitive needs: No Hearing needs: No Vision needs: No Meds Allergies Allergy/AdvReac Type Severity Reaction Status Date / Time No Known Allergies Allergy Verified 11/23/24 14:55 Exam Pertinent Lab Results Pertinent Lab Results: Laboratory Tests 11/06/24 07:52 WBC 5.1 Hgb 15.1 Hct 44.9 Plt Count 208 Sodium 143 Potassium 3.8 Chloride 110 H Carbon Dioxide 24 BUN 22 H Creatinine 0.94 Narrative Narrative: EKG 11/2024 EKG Details: EKG shows normal sinus rhythm with normal EKG Assessment and Plan Assessment Anesthesia Assessment: Chart Reviewed Documented by User: Chelsea Gutierrez DO 12/24/24 16:15 PMFSH Family History Family History Father HTN (hypertension) Diabetes Mother History of hip surgery Migraines Osteoarthritis Osteoporosis Family history of problems with anesthesia: No Surgical History Surgical History No pertinent past surgical history History of Problems with Anesthesia: No Social History Social History Household Members: Spouse and Children Housing: House Alcohol intake: current Alcohol intake frequency: does not drink Alcohol type: hard liquor Patient Tobacco Use Status: Never used Tobacco e-Cigarette/Vaping Use: Never Used Second Hand Smoke Exposure: No Have you been hit, kicked, punched, or otherwise hurt by someone within the past year? If so, by whom?: No Are you DNR?: No Advance Directives: No Advance Directives Information Provided: Yes service: No Current occupational status: unemployed Sexual orientation: Straight/Heterosexual Gender identity: Male Cognitive needs: No Hearing needs: No Vision needs: No Meds Allergies Allergy/AdvReac Type Severity Reaction Status Date / Time No Known Allergies Allergy Verified 11/23/24 14:55 Exam Exam Date and Time: 12/24/24 1520 Height,Weight and Vital Signs: Height 6 ft 1.2 in Weight 98.2 kg Vital Signs Temperature 98.5 F 12/24/24 12:50 Pulse Rate 66 12/24/24 12:50 Respiratory Rate 18 12/24/24 12:50 Blood Pressure 139/67 12/24/24 12:50 Pulse Oximetry 98 12/24/24 12:50 Oxygen Delivery Method Room Air 12/24/24 12:50 Temperature 98.5 F 12/24/24 12:50 Pulse Rate 66 12/24/24 12:50 Respiratory Rate 18 12/24/24 12:50 Blood Pressure 139/67 12/24/24 12:50 Pulse Oximetry 98 12/24/24 12:50 Oxygen Delivery Method Room Air 12/24/24 12:50 Airway Mallampati Class: II TM Dist: >3cm Neck ROM: Full Loose/Missing/Broken Teeth: No (patient denies any loose or broken teeth) Heart: S1S2 Lungs: CTAB Assessment and Plan Assessment Anesthesia Assessment: Anesthesia Plan Discussed and Chart Reviewed Final Anesthetic Review Family History of Problems with Anesthesia: No History of Problems with Anesthesia: No NPO: Yes ASA Class: II Final Preanesthetic Review: No Changes in Pt Med Stat, Meds/Allgs Chart Reviewed, Consent Obtained/Reviewed ([place] radiological metallurgist at bedside for translation) and Anes Risks/Benef Reviewed Patient Risk: Low Procedure Risk: Low Anesthetic Plan Anesthetic Plan: MAC: and Agree w/ Assess. and Plan Disposition: Standard PACU
--- NOTE | 2024-12-24 15:24 | PC.NURSE ---
report given to furniture detailerrhett gil
[2024-12-24] MEDS: ceFAZolin Sodium/Dextrose,Iso 2 GM/50 ML PIGGYBACK IV (16:30)
--- NOTE | 2024-12-24 17:22 | W.PM.OPN ---
Operative Note Operative Note Date of Service: 12/24/24 Narrative: Preoperative diagnosis: [] Symptomatic right inguinal hernia Postop diagnosis: [] The same Procedure [] open right inguinal repair with Bard mesh Surgeon: [] Carrington Fish Roe Processor: [] Luciana Type of Anesthesia: [] MAC Indication for surgery: [] Large indirect and moderately sized direct inguinal hernia Findings: [] Patient brought to the operating room, placed on operative table supine position, after an adequate level of MAC anesthesia was induced, the right groin was prepped and draped in usual sterile fashion. Using an ilioinguinal block as well as local infiltration with 0.5% Marcaine/1% lidocaine, a small right para inguinal incision was made and carried down through skin, subcutaneous tissue, Golden's fascia. External oblique fibers were opened their direction with care to isolate and preserve the ilioinguinal nerve. Spermatic cord was identified and retracted from the field. Exploration of the cord demonstrated a large indirect hernia sac which was reduced. Inguinal floor also had a indirect inguinal hernia. An extra-large Bard plug was placed in the indirect defect and sutured inferiorly to the inguinal ligament, and superiorly to the transversalis fascia using interrupted 0 Ethibond suture. At completion of procedure, mesh was in good position with no tension or gaps and covered the entire inguinal floor as well. Wound was irrigated, secured hemostasis, and closed in the following manner; external oblique fascia was closed using running 2-0 Vicryl suture. Golden's fascia was reapproximated using interrupted 3-0 Vicryl suture. Interrupted inverted deep dermal 3-0 Vicryl sutures followed by running subcuticular 4-0 Vicryl sutures were placed. Steri-Strips and sterile dressings were applied. Wound was infiltrated again with 0.5% Marcaine/1% lidocaine at completion. Sponge, needle, and instrument counts were reported correct. Patient tolerated the procedure well and emerged from anesthesia stable condition. EBL minimal. Ipsilateral testicle was intrascrotal at completion.
== END 2024-12-24 18:29 | disposition home or self-care (01) ==
PROVIDERS: Visit Provider Surgery
PROC: (CPT 49505; principal; 2024-12-24 15:10)
DX: K40.90 Unilateral inguinal hernia, without obstruction or gangrene, not specified as recurrent (principal); E78.2 Mixed hyperlipidemia; I45.10 Unspecified right bundle-branch block; Z79.899 Other long term (current) drug therapy; Z56.0 Unemployment, unspecified
CPT/HCPCS: 49505; C1781; J0131; J0690; J1100; J1885; J2003; J2250; J2704; J2795; J3010

== ENCOUNTER → 2024-12-24 12:10 | Outpatient (BNV) | payer OTHER, SELFPAY | PROVIDERS: Visit Provider Surgery | DX: K40.20 Bilateral inguinal hernia, without obstruction or gangrene, not specified as recurrent (principal) | CPT/HCPCS: 49505 ==

== ENCOUNTER 2025-01-04 09:09 | Outpatient (AMB) | payer OTHER, SELFPAY ==
--- NOTE | 2025-01-04 09:17 | MHC.OFFVIS ---
Vital Signs 01/04/25 09:22 Weight 214 lb BP 142/89 H Blood Pressure Location Rt brachial Position Sitting Pulse 96 Intake Visit Reasons: S/P RIH w/mesh Intake Note: Patient here s/p open right inguinal repair with Bard mesh. Reports incision healing well. Patient c/o: no concerns. Denies pain, oozing. Never took rx pain meds. 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 Presents to his . Aside from incisional discomfort he is doing well. He is tolerating a diet. Having regular bowel habits. He is increasing his activity level. COUNTS INCLUDE 234 BEDS AT THE [facility] Surgical History (Updated 01/04/25 @ 09:44 by Sabino Shultz MD) History of right inguinal hernia repair (12/24/24) No pertinent past surgical history Family History Father HTN (hypertension) Diabetes Mother History of hip surgery Migraines Osteoarthritis Osteoporosis Social History Household Members: Spouse and Children Housing: House Alcohol intake: current Alcohol intake frequency: does not drink Alcohol type: hard liquor Patient Tobacco Use Status: Never used Tobacco e-Cigarette/Vaping Use: Never Used Second Hand Smoke Exposure: No service: No Current occupational status: unemployed Sexual orientation: Straight/Heterosexual Gender identity: Male Cognitive needs: No Hearing needs: No Vision needs: No Physical Exam Vital Signs: Last Vital Signs Pulse 96 01/04/25 09:22 BP 142/89 H 01/04/25 09:22 GI Other: Abdomen is soft. Wound clean dry and intact healing well Assessment & Plan Assessment & Plan (1) Status post inguinal hernia repair using synthetic patch: Code(s): Z98.890 - Other specified postprocedural states; Z87.19 - Personal history of other diseases of the digestive system Category: Medical Plan Patient was been given local instructions including avoiding strenuous activities next few weeks time and will otherwise follow-up p.r.n.. All questions answered. Coding Level of Care Code Global (89583) Diagnoses Status post inguinal hernia repair using synthetic patch Z98.890; Z87.19
[2025-01-04 09:22] VITALS: BP 142/89; PULSE 96
== END 2025-01-04 10:01 | disposition home or self-care (01) ==
LOC: HO.HGS 09:09
PROVIDERS: Visit Provider Surgery
DX: Z98.890 Other specified postprocedural states (principal); Z87.19 Personal history of other diseases of the digestive system
CPT/HCPCS: 99024

== ENCOUNTER → 2025-01-04 09:09 | Outpatient (BNVA) | payer OTHER, SELFPAY | PROVIDERS: Visit Provider Surgery | DX: Z09 Encounter for follow-up examination after completed treatment for conditions other than malignant neoplasm (principal); Z87.19 Personal history of other diseases of the digestive system; Z98.890 Other specified postprocedural states | CPT/HCPCS: 99212 ==

== ENCOUNTER 2025-01-07 11:31 | Outpatient (REF) | payer OTHER, SELFPAY ==
[2025-01-07 12:38] LABS: HBS Num1 0.24 mIU/mL (0-7.99); HBc Num1 0.08 S/CO (0.00-0.79); HBsAGNum1 0.31 S/CO (0.00-0.99); Hepatitis B Core Antibody Nonreactive (Nonreactive); Hepatitis B Surface Antigen Negative (Negative); ~Hepatitis B Surface Antibody NONREACTIVE (Nonreactive)
[2025-01-10 00:08] LABS: TS Negative Control Passed; TS Panel A 0; TS Panel B 0; TS Positive Control Passed; TSpotTB Negative (Negative)
[2025-01-10 21:38] LABS: Varicella IgG Antibody 3.48 S/CO
[2025-01-11 03:23] LABS: Rubella IgG Antibody 1.82 Index
== END 2025-01-07 11:32 | disposition home or self-care (01) ==
LOC: HO.LAB 11:31
DX: Z01.84 Encounter for antibody response examination (principal); Z11.1 Encounter for screening for respiratory tuberculosis; Z11.59 Encounter for screening for other viral diseases
CPT/HCPCS: 36415; 86481; 86704; 86706; 86735; 86762; 86765; 86787; 87340

== ENCOUNTER 2025-01-13 12:35 | Outpatient (AMB) | payer OTHER, SELFPAY ==
--- NOTE | 2025-01-13 12:50 | AM.OFFVISNUR ---
Intake Visit Reasons: Hep B vaccine Allergies No Known Allergies Allergy (Verified 01/04/25 09:18) Immunizations Recombivax HB (PF) 10 mcg/mL intramuscular suspension Performing Provider: LEXUS Jason [facility] Administered by: Samara Garza RN on 01/13/25 12:58 Dose Route Admin Location Dispensed Lot Number Expiration Date [facility] Plant [employer] Professor 1 mL IM Left Deltoid 1 mL [id number] 10/28/26 97976-671-03 [email or web address] VIS Given Date VIS Provided VIS Publication Date 01/13/25 Single Vaccine 23 Eligibility Eligibility Date Funding Source Not [facility] Eligible 01/13/25 Private Assessment & Plan Assessment & Plan Orders: Orders Hepatitis B Adult Immunization Today Z23 - Encounter for immunization Medications: New Recombivax HB (PF) (hepatitis B virus vacc.rec(PF)) 1.0 mL IM ONCE 1 mL 0RF NS Z23 - Encounter for immunization Coding
== END 2025-01-13 13:05 | disposition home or self-care (01) ==
LOC: HO.HMCH 12:36
DX: Z23 Encounter for immunization (principal)

== ENCOUNTER → 2025-01-13 12:35 | Outpatient (BNVA) | payer OTHER, SELFPAY | DX: Z23 Encounter for immunization (principal) | CPT/HCPCS: 90471; 90746 ==

== ENCOUNTER 2025-02-23 13:11 | Outpatient (AMB) | payer OTHER, SELFPAY ==
--- NOTE | 2025-02-23 13:32 | A.OFFPC_ITS ---
Vital Signs 02/23/25 13:33 Height 6 ft 1.25 in Weight 212 lb 9.6 oz BMI 27.9 BP 114/76 Blood Pressure Location Lt brachial Position Sitting Respiration 18 Pulse 85 Pulse Source Pulse Oximeter Temp 98.4 F Temp Source Oral Pulse Oximetry (%) 95 Oxygen Delivery Method Room Air Intake Visit Reasons: vit B defficiency Train Clerk Required: No Train Clerk Name: Declined Accompanied by: Spouse Allergies No Known Allergies Allergy (Verified 02/23/25 13:46) Medication List - Last Reconciled 02/23/25 by LEXUS Jason atorvastatin 10 mg PO BEDTIME 3 months cholecalciferol (vitamin D3) 25 mcg PO DAILY 3 months Tobacco use date assessed: 02/23/25 Dental Screening Dental Screen Date: 02/23/25 Did you have a dental visit in the last 12 months?: Yes Did you have a dental problem in the last 6 months where you did not have access to dental care?: No Was dental information given to patient?: Patient has dentist HPI vit B defficiency HPI Details The patient is 49 year old male mixed hypercholesterolemia and hypertriglyceridemia, vitamin Deficiency, right inguinal hernia repair, RBBB Here for 3 month follow up appoint The patient did not complete his follow blood work and will go tomorrow-reports that he forgot In the meantime, he is voicing concerns of bloating and feeling heavy in his stomach that is associated with excessive gas production. He would like to be checked for cait in his stomach He denies stomach pain, nausea or vomiting or changes in stool habits, no blood or mucus in his stool Denies heartburn and states that he only get this after drinking red wine States that milk has the opposite effect on him, instead of diarrhea, he feels like he gets constipated from it He is also asking if he could get his stool check for check even though his is not having diarrhea The patient also reports a sensation in the right groin and was wondering if he could do follow up imaging to seeing if he is healing properly-he was encouraged to follow with the surgeon reports left rib area dull pain, started about 2 or 3 months ago, comes and goes, it is not there always He would like a calcium CT score to make sure he does not have plaque build up in his arteries [facility] Surgical History History of right inguinal hernia repair (12/24/24) No pertinent past surgical history Family History Father HTN (hypertension) Diabetes Mother History of hip surgery Migraines Osteoarthritis Osteoporosis Social History Household Members: Spouse and Children Housing: House Alcohol intake: current Alcohol intake frequency: does not drink Alcohol type: hard liquor Patient Tobacco Use Status: Never used Tobacco e-Cigarette/Vaping Use: Never Used Second Hand Smoke Exposure: No service: No Current occupational status: unemployed Sexual orientation: Straight/Heterosexual Gender identity: Male Cognitive needs: No Hearing needs: No Vision needs: No Questionnaire Thrive Questionnaire Date Thrive assessed: 02/23/25 I am a: Patient What is your living situation today?: I have a steady place to live Within the past 12 months, did the food you bought not last and you didn't have the money to get more?: Never true Within the past 12 months, did you worry whether your food would run out before you got money to buy more?: I choose not to answer this question Do you have trouble paying for medicines?: No Do you have trouble getting transportation to medical appointments?: No Do you have trouble paying your heating and electricity bill?: No Do you have trouble taking care of your child, family member or friend?: No Do you have trouble with day-to-day activities such as bathing, preparing meals, shopping, managing finances, etc.?: No Are you currently unemployed and looking for a job?: Yes Are you interested in more education?: No Please select the resources that you would like help with: None Currently or been in a relationship where the following occur: No concerns reported THRIVE Score: 0 AUDIT C Alcohol Use Questionnaire (AUDIT-C) 1. How often do you have a drink containing alcohol?: Monthly or less (Rarely; Special occasions) Total Score: 1 Score Reviewed/Action Taken: No ZACH-7 AMB Questionnaire ZACH-7 Date ZACH - 7 assessed: 11/05/24 Source: Developed by Drs. Romain Perdomo, Annika Arauz, Shine Martinez and colleagues, with an educational rajesh from [employer]. Review of Systems Const Denies headache(s) Eyes Denies loss of vision ENT Denies vertigo, Denies dizziness, Denies headache(s) and Denies sore throat Card Denies chest pain, Denies leg edema and Denies lightheadedness Resp Denies cough, Denies hemoptysis and Denies wheezing GI Denies abdominal pain, Denies melena, Reports bloating, Denies change in bowel habits, Denies constipation, Reports GI cramping, Reports excessive flatus, Reports heartburn (very infrequent), Denies diarrhea, Denies nausea and Denies vomiting Denies dysuria, Denies urinary frequency and Denies urinary urgency Musc Denies arthralgias, Denies joint swelling, Denies numbness, Denies tingling and Reports other (left rib area dull pain that comes and goes) Skin/Breast Denies lesions and Denies rash Neuro Denies Abnormal speech present, Denies vertigo, Denies dizziness, Denies headache(s), Denies loss of vision, Denies numbness and Denies tingling Jack/Lymph Denies easy bleeding and Denies easy bruising Aller/Immun Denies wheezing Physical exam (Primary Care) Vital Signs: Last Vital Signs Temp 98.4 F 02/23/25 13:33 Pulse 85 02/23/25 13:33 Resp 18 02/23/25 13:33 BP 114/76 02/23/25 13:33 Pulse Ox 95 02/23/25 13:33 Oxygen Delivery Method Room Air 02/23/25 13:33 BMI result Body Mass Index 27.9 Tobacco/Smoking Status: Tobacco use Status Tobacco use date assessed 02/23/25 02/23/25 13:42 Patient Tobacco Use Status Never used Tobacco 02/23/25 13:32 e-Cigarette/Vaping Use Never Used 02/23/25 13:32 Thrive Assessment: Date of Thrive Assessment Date Thrive assessed 02/23/25 02/23/25 13:42 Currently or been in a relationship where the following occur: No concerns reported Const General: healthy appearing, no acute distress, alert and awake Nutritional Appearance: well nourished Orientation/consciousness: oriented to person, oriented to place and oriented to time HENMT Ears: external ears normal General nose exam: Normal external nose present Eyes Conjunctivae: conjunctivae normal Sclerae: sclerae normal Pupils: Equal, round and reactive pupils present Neck Neck: Yes no lymphadenopathy and Yes no JVD Thyroid: Thyroid normal Carotids: no bruits Resp Effort & Inspection: normal respiratory effort and not tachypneic Auscultation: no crackles, no rales, no rhonchi and no wheezes Cardio Rate: regular rate Rhythm: regular rhythm Heart sounds: no murmurs and normal S1 and S2 GI Palpation (GI): Soft to palpation, nontender, no hepatomegaly and no splenomegal y Auscultation: normal bowel sounds General: Yes no CVA tenderness Back/Spine/Pelvis Back: no CVA tenderness Skin General skin exam: no rashes or lesions noted and dry skin Neuro General: oriented to person, oriented to place and oriented to time Cranial nerves: Yes Equal, round and reactive pupils present Speech: No Abnormal speech present Gait exam (Neuro): Normal gait present Motor exam (neuro): no tremor noted Extrem Right upper extremity: full ROM Left upper extremity: full ROM Right lower extremity: full ROM; no edema Left lower extremity: full ROM; no edema Coding Level of Care Code Est Pt Level 3 (83421) Diagnoses Abdominal bloating with cramps R14.0; R10.9 Excessive gas R14.3 Bloating R14.0 Mixed hypercholesterolemia and hypertriglyceridemia E78.2 Vitamin D deficiency E55.9 Right inguinal hernia K40.90 IFG (impaired fasting glucose) R73.01 Time Spent (min) 33 Assessment & Plan Assessment & Plan (1) Abdominal bloating with cramps: Code(s): R14.0 - Abdominal distension (gaseous); R10.9 - Unspecified abdominal pain Category: Medical Plan: The patient we will be going to complete preordered labs tomorrow. We will add transglutaminase ab IgG and endomysial IgA reflex titer to rule out gluten intolerance/allergy. Will hold off on stool test, because he is not having any changes in changes in stool and he denies diarrhea. (2) Excessive gas: Code(s): R14.3 - Flatulence Category: Medical Plan: The FODMAP diet was introduced with the patient. Patient to start this diet after tests are completed. (3) Bloating: Code(s): R14.0 - Abdominal distension (gaseous) Category: Medical Plan: Same as above. Will hold off on starting the patient on PPI because he only has heartburn infrequently when he drinks red wine. Consider referring the patient to GI if symptoms persists or worsens (4) Mixed hypercholesterolemia and hypertriglyceridemia: Code(s): E78.2 - Mixed hyperlipidemia Category: Medical Plan: tri 179, t-chol 216, LDL 141, HDL 40 10/2024-will complete preordered labs lindy helms Discussed lifestyle modifications including dietary changes and physical activity Start [place] 3 supplements He requested a calcium CT score Order placed, printed and given to the patient, and instructed him to bring this to [place] where this test is located. He is aware that this will be an out of pocket cost. (5) Vitamin D deficiency: Code(s): E55.9 - Vitamin D deficiency, unspecified Category: Medical Plan: Vitamin-D level was 21.0 10/2024 Continue cholecalciferol 25 mcg daily (6) Right inguinal hernia: Code(s): K40.90 - Unilateral inguinal hernia, without obstruction or gangrene, not specified as recurrent Category: Surgical Plan: Status post hernia repair on 12/24/2024 Complaining of feeling something weird in his right groin Explained to the patient that is probably the mesh used in the procedure He is asking for a follow up imaging of his groin to see if he healed properly Encouraged the patient to follow up with General surgery (7) IFG (impaired fasting glucose): Code(s): R73.01 - Impaired fasting glucose Category: Medical Plan: Fasting glucose was 112 with a A1c of 5.2% 10/2024 will recheck on f/b labs and advise Orders: Orders Endomysial IgA rflx Titer Today R10.9 - Unspecified abdominal pain, R14.0 - Abdominal distension (gaseous), R14.3 - Flatulence CT Coronary Calcium Score Today E78.2 - Mixed hyperlipidemia Transglutaminase Ab IgG Today R10.9 - Unspecified abdominal pain, R14.0 - Abdominal distension (gaseous), R14.3 - Flatulence Rast Allergen Today R10.9 - Unspecified abdominal pain, R14.0 - Abdominal distension (gaseous), R14.3 - Flatulence Hemoglobin A1c Today R73.01 - Impaired fasting glucose
[2025-02-23 13:33] VITALS: BP 114/76; PULSE 85; RESP 18; TEMP 36.9; O2SAT 95; BMI 27.9
== END 2025-02-23 14:21 | disposition home or self-care (01) ==
LOC: HO.HMCH 13:11
DX: R14.0 Abdominal distension (gaseous) (principal); R10.9 Unspecified abdominal pain; R14.3 Flatulence; E78.2 Mixed hyperlipidemia; E55.9 Vitamin D deficiency, unspecified; K40.90 Unilateral inguinal hernia, without obstruction or gangrene, not specified as recurrent; R73.01 Impaired fasting glucose

== ENCOUNTER → 2025-02-23 13:11 | Outpatient (BNVA) | payer OTHER, SELFPAY | DX: E78.1 Pure hyperglyceridemia (principal); E55.9 Vitamin D deficiency, unspecified; I45.10 Unspecified right bundle-branch block; R10.9 Unspecified abdominal pain; R14.3 Flatulence; E78.2 Mixed hyperlipidemia; K40.90 Unilateral inguinal hernia, without obstruction or gangrene, not specified as recurrent; R73.01 Impaired fasting glucose | CPT/HCPCS: 99212 ==

== ENCOUNTER 2025-02-26 09:24 | Outpatient (REF) | payer OTHER, SELFPAY ==
[2025-02-26 11:57] LABS: Estimated Average Glucose 108 mg/dL; Hemoglobin A1c % 5.4 % (<6.0); Total Hemoglobin (HGBA1C) 4082.2778 umol/L
[2025-02-26 12:14] LABS: Alanine Aminotransferase 23 U/L (0-40); Albumin Level 4.7 g/dL (3.5-5.0); Alkaline Phosphatase 69 U/L (39-117); Anion Gap 12 (12-20); Aspartate Amino Transferase 22 U/L (5-37); Bilirubin Total 1.2 mg/dL (0.0-1.0); Blood Urea Nitrogen 19 mg/dL (9-16); Calcium 9.6 mg/dL (8.4-10.2); Carbon Dioxide 29 mmol/L (22-29); Chloride 106 mmol/L (96-108); Cholesterol 231 mg/dL (<200); Estimated Glomerular Filt Rate > 60; Glucose Fasting 101 mg/dL (60-99); HDL Cholesterol 42 mg/dL (>40); LDL Cholesterol Calculated 157 mg/dL (<100); Potassium 4.7 mmol/L (3.3-5.1); Sodium 142 mmol/L (135-145); Total Protein 7.7 g/dL (6.5-8.0); Triglycerides 161 mg/dL (<150)
[2025-02-26 12:16] LABS: TSH reflex Free T4 1.22 uIU/mL (0.32-4.0); Vitamin D 25-OH Total 31.5 ng/mL (>30)
[2025-02-26 12:55] LABS: Appearance Urine Clear; Color Urine Yellow; Glucose Urine UA Negative (Negative); Leukocyte Esterase Urine Negative (Negative); Nitrite Urine Negative (Negative); PH 6.5 (5.0-9.0); Specific Gravity - Urine 1.025 (1.005-1.025); Urine Blood Negative (Negative); Urine Ketones Negative (Negative); Urine Protein Negative (Neg-Trace)
[2025-03-01 18:03] LABS: Transglutaminase Ab IgG <1.0 U/mL
[2025-03-03 16:19] LABS: Endomysial IgA Antibody Negative (Negative)
== END 2025-02-26 09:25 | disposition home or self-care (01) ==
LOC: HO.LAB 09:24
DX: E56.9 Vitamin deficiency, unspecified (principal); E78.00 Pure hypercholesterolemia, unspecified; I45.10 Unspecified right bundle-branch block; R14.0 Abdominal distension (gaseous); R14.3 Flatulence; R10.9 Unspecified abdominal pain; R73.01 Impaired fasting glucose
CPT/HCPCS: 36415; 80053; 80061; 81003; 82306; 83036; 84443; 86231; 86364